=== PATIENT | female | born 1950 ===

== ENCOUNTER 2018-05-20 05:52 | Inpatient (IN) | payer MEDICARE ==
[~2018-05-20] VITALS: Ht 175.3 cm; Wt 71.7 kg
[~2018-05-20 05:52] MED LIST: CONEST.625 VAG; SUMA25 PO; Triamterene W/1 EACH PO
--- NOTE | 2018-05-20 06:45 | NUR ---
PT ADMITTED TO [facility]. AGREES WITH PLANNED SURGERY. MEDS, ALLERGIES AND HX REVIEWED. LUNG SOUNDS CLEAR. NOZIN SWAB TO BILATERAL NARES.
--- NOTE | 2018-05-20 07:16 | NUR ---
UP TO BATHROOM TO VOID.
--- NOTE | 2018-05-20 11:07 | NUR ---
PREPARING FOR DISCHARGE FROM PACU, PT C/O PAIN, MEDICATED FOR PAIN RELIEF PRIOR TO DISCHAGE. 2ND DOSE TXA ADMINISTERED.
--- NOTE | 2018-05-20 17:40 | NUR ---
SHIFT SUMMARY PT HAS DONE VERY WELL POST OP. AMBULATING EASILY, PAIN WELL MANAGED, TOLERATING DIET, VOIDING. PT DOES REPORT HAVING NUMBNESS ON TOP OF R FOOT. PWD, CAP REFILL WNL.
[2018-05-21 04:40] LABS: BASOPHILS ABSOLUTE AUTO 0.01 K/mm3 (0.00-0.23); BASOPHILS PERCENT AUTO 0 % (0-2); EOSINOPHILS ABSOLUTE AUTO 0.04 K/mm3 (0.00-0.68); EOSINOPHILS PERCENT AUTO 1 % (0-6); Hematocrit 31.9 % (33.0-51.0); Hemoglobin 10.8 g/dL (11.5-16.0); IMMATURE GRAN ABSOLUTE AUTO 0.02 K/mm3 (0.00-0.10); IMMATURE GRAN PERCENT AUTO 0 % (0-1); LYMPHOCYTES ABSOLUTE AUTO 0.82 K/mm3 (0.84-5.20); LYMPHOCYTES PERCENT AUTO 12 % (21-46); MONOCYTES ABSOLUTE AUTO 0.55 K/mm3 (0.16-1.47); MONOCYTES PERCENT AUTO 8 % (4-13); Mean Corpuscular HGB 31.9 pg (26.0-34.0); Mean Corpuscular HGB Conc 33.9 g/dL (31.5-36.5); Mean Corpuscular Volume 94 fL (80-100); Mean Platelet Volume 10.4 fL (9.1-12.4); NEUTROPHILS ABSOLUTE AUTO 5.51 K/mm3 (1.96-9.15); NEUTROPHILS PERCENT AUTO 79 % (41-73); Platelet Count 143 K/mm3 (150-400); RDW Coefficient Variation 12.4 % (11.7-14.2); RDW Standard Deviation 42.8 fL (35.1-46.3); Red Blood Cell Count 3.39 M/mm3 (3.80-5.20); White Blood Cell Count 6.95 K/mm3 (4.00-11.30)
[2018-05-21 04:55] LABS: Bun/Creatinine Ratio 32.1 (12.0-20.0); Calcium, Blood 8.3 mg/dL (8.5-10.1); Magnesium, Blood 2.2 mg/dL (1.6-2.4)
--- NOTE | 2018-05-21 06:44 | NUR ---
LYING IN SEMI FOWLERS WITH EYES OPEN. WAS TREATED FOR PAIN X3 THIS SHIFT, TOLERATED WELL. REFUSED TO WEAR SCD'S, OR USE WALKER WHILE AMBULATING. DENIES FURTHER NEEDS OR WANTS AT THIS TIME. SAFETY MEASURES IN PLACE. WILL GIVE HAND OFF TO ONCOMING SHIFT USING SBAR.
--- NOTE | 2018-05-21 07:19 | NUR ---
DR [facility] HERE, [employer] REPRESENTATIVE ROUNDED WITH
[2018-05-21] MEDS ORDERED: OXYC5 PO (08:04)
[2018-05-21] MEDS ORDERED: ASPI325EC PO (08:04)
--- NOTE | 2018-05-21 10:50 | NUR ---
DISCHARGE: PT REQUESTING TO GO HOME, REPORTS WILL WAIT SHORT TIME FOR OT TO COME SHE HAS REQUESTED OT TO ASSSIT IN QUESTIONING HOW TO PUT PANTS ON WITH HIP PRECAUTIONS. PT IV OUT WNL. PT/FAMILY REPORTS UNDERSTANDING OF DISCHARGE INSTRUCTIONS, REPORTS HAVING APPR EQUIP AT HOME. REPORTS UNDERSTANDING OF ICE MACHINE. PT BEEN GIVEN DRESSINGS AND OTHER EQUIP. PT REPORTS UNDERSTANDING OF DRESSING CHANGES. PT WAITING FOR OT TO ASSIST WITH PT AND THEN WILL BE DISCHARGED.
--- NOTE | 2018-05-21 11:25 | NUR ---
PT BEEN CLEARED BY OT, PT OUT BY W/C WITH BELONGINGS INCLUDING ICE MACHINE, DRESSINGS AND PAPERWORK. PT REPORTS HAVING FILLED SCRIPTS ALREADY.
== END 2018-05-21 11:25 | disposition home or self-care (01) | DRG 470 ==
LOC: SURS 05:52 → PRE IP 07:30 → SURS 11:10
PROVIDERS: ADMIT Orthopaedic Surgery
PROC: 0SR904A Replacement of Right Hip Joint with Ceramic on Polyethylene Synthetic Substitute, Uncemented, Open Approach (ICD-10-PCS; principal; 2018-05-20 07:30)
DX: M16.11 Unilateral primary osteoarthritis, right hip (principal); I10 Essential (primary) hypertension
CPT/HCPCS: 36415; 72170; 80048; 83735; 85025; 88300; 97110; 97116; 97162; 97165; 97530; 97535; C1713; C1776; J0171; J0690; J0735; J1100; J1170; J1885; J2250; J2405; J2795; J3010; J3370; J7120

== ENCOUNTER 2018-09-07 11:37 | Day surgery (SDC) | payer MEDICARE ==
[~2018-09-07] VITALS: Ht 175.3 cm; Wt 70.5 kg
[~2018-09-07 11:37] MED LIST changes: +ASPI325EC PO; +OXYC5 PO
--- NOTE | 2018-09-07 12:26 | NUR ---
09/07/18 1226 Jona Villegas BLOCK PLACED IN PATIENT'S RIGHT HAND. FLUSHED EXPECTED. PATIENT TOLERATED WELL
--- NOTE | 2018-09-07 14:07 | NUR ---
09/07/18 140Miki Cordon PATIENT SIGNED AMA RELEASE TO DRIVE HOME. BEIR BLOCK WAS DONE IN OPERATIVE LIMB AND NO SEDATION WAS GIVEN.
== END 2018-09-07 13:50 | disposition home or self-care (01) ==
LOC: ORSCSDS 11:37
PROVIDERS: Orthopaedic Surgery
PROC: 01N50ZZ Release Median Nerve, Open Approach (ICD-10-PCS; principal; 2018-09-07 13:35)
DX: G56.01 Carpal tunnel syndrome, right upper limb (principal); I10 Essential (primary) hypertension
CPT/HCPCS: J0690; J2001; J2250; J3010; J7120

== ENCOUNTER 2019-03-22 12:25 | Day surgery (SDC) | payer MEDICARE ==
[~2019-03-22] VITALS: Ht 175.3 cm; Wt 72.7 kg
== END 2019-03-22 14:19 | disposition home or self-care (01) ==
LOC: ORSCSDS 12:25
PROVIDERS: Internal Medicine Gastroenterology
PROC: 0DB48ZX Excision of Esophagogastric Junction, Via Natural or Artificial Opening Endoscopic, Diagnostic (ICD-10-PCS; principal; 2019-03-22 13:45)
PROC: 0DB58ZX Excision of Esophagus, Via Natural or Artificial Opening Endoscopic, Diagnostic (ICD-10-PCS; principal; 2019-03-22 13:45)
PROC: 0D757DZ Dilation of Esophagus with Intraluminal Device, Via Natural or Artificial Opening (ICD-10-PCS; principal; 2019-03-22 13:45)
DX: K22.70 Barrett's esophagus without dysplasia (principal); R13.14 Dysphagia, pharyngoesophageal phase; B37.81 Candidal esophagitis; I10 Essential (primary) hypertension; Z79.899 Other long term (current) drug therapy
CPT/HCPCS: 88305; J2704; J7120

== ENCOUNTER 2023-08-18 09:18 | Day surgery (SDC) | payer MEDICARE ==
[~2023-08-18] VITALS: Ht 175.3 cm; Wt 70.5 kg
[~2023-08-18 09:18] MED LIST changes: +Lidocaine 1%-Epineph 1:100000 20 ML MDV ONE
[2023-08-18] MEDS ORDERED: Lactated Ringer's 1,000 ML IV ONE ×2 (09:35→10:00)
[2023-08-18] MEDS ORDERED: NS 50 ML IV ONE (09:37)
[2023-08-18] MEDS ORDERED: CeFAZolin Sodium 2,000 MG VIAL ONE (09:37)
[2023-08-18] MEDS ORDERED: CATAPRES0.1 MG PO (09:47)
[2023-08-18] MEDS ORDERED: IRBE150 PO (09:48)
--- NOTE | 2023-08-18 11:12 | NUR ---
08/18/23 1112 Brandy Castillo TIMEOUT FOR INJECTION IN PRE-OP AT [address] [facility]
[2023-08-18] MEDS ORDERED: Lidocaine HCl/Pf 1% 5 ML VIAL ONE (11:31)
[2023-08-18 11:49] VITALS: BP 198/93
== END 2023-08-18 12:24 | disposition home or self-care (01) ==
LOC: ORSCSDS 09:18
PROVIDERS: Orthopaedic Surgery
PROC: 01N50ZZ Release Median Nerve, Open Approach (ICD-10-PCS; principal; 2023-08-18 10:45)
DX: G56.02 Carpal tunnel syndrome, left upper limb (principal); I10 Essential (primary) hypertension; E78.5 Hyperlipidemia, unspecified; Z79.899 Other long term (current) drug therapy
CPT/HCPCS: J0690; J2001; J7120

== ENCOUNTER → 2023-12-18 | Outpatient (CLI) | payer MEDICARE ==
[~2023-12-18] MED LIST changes: +CATAPRES0.1 MG PO; +IRBE150 PO; -Lidocaine 1%-Epineph 1:100000 20 ML MDV ONE; +MAXIDEX
== END ==
LOC: LAB SHORT 14:36 → LAB 14:36
DX: L72.0 Epidermal cyst (principal)
CPT/HCPCS: 88304

== ENCOUNTER 2023-12-24 11:51 | Day surgery (SDC) | payer MEDICARE ==
[~2023-12-24] VITALS: Ht 175.3 cm; Wt 156.2 kg
[~2023-12-24 11:51] MED LIST changes: +Balanced Salt Epinephrine Irrigation Solution 500 mL IR SCH; +Lidocaine HCl/Pf 1% 5 ML VIAL XX SCH; +Moxifloxacin HCL 0.5 MG/0.1 ML 0.4MLSYR LEFTEYE SCH; +NS 500 ML IV ONE; +PHENYLEPHRINE\\TROPICAMIDE\\TETRACAINE OPHTHALMIC DILATING SOLN LEFTEYE PRN; +Povidone-Iodine 450 DROP/30 ML Solution LEFTEYE SCH; +Povidone-Iodine 450 DROP/30 ML Solution ONE; +Tetracaine HCl/Pf 0.5% Opth Soln 4 ml ONE
[2023-12-24] MEDS ORDERED: NS 500 ML IV ONE (12:24)
[2023-12-24] MEDS ORDERED: Midazolam HCl 1MG / ML 2ML Vial ONE (12:43)
[2023-12-24] MEDS ORDERED: Labetalol HCL 5 MG/ML 4ML Injection (Single Dose) ONE (12:46)
[2023-12-24] MEDS ORDERED: Tetracaine HCl 0.5% Opth Soln 15 ml LEFTEYE ONE (12:47)
[2023-12-24 13:21] VITALS: BP 152/83
== END 2023-12-24 13:23 | disposition home or self-care (01) ==
LOC: ORSCSDS 11:51
PROVIDERS: Student in an Organized Health Care Education/Training Program
PROC: 08RK3JZ Replacement of Left Lens with Synthetic Substitute, Percutaneous Approach (ICD-10-PCS; principal; 2023-12-24 13:00)
DX: H25.813 Combined forms of age-related cataract, bilateral (principal); I10 Essential (primary) hypertension; Z79.899 Other long term (current) drug therapy
CPT/HCPCS: J2250; J7040; V2632

== ENCOUNTER 2023-12-30 06:53 | Day surgery (SDC) | payer MEDICARE ==
[~2023-12-30] VITALS: Ht 170.2 cm; Wt 70.6 kg
[~2023-12-30 06:53] MED LIST changes: +Lidocaine HCl/Pf 1% 5 ML VIAL ONE; -Moxifloxacin HCL 0.5 MG/0.1 ML 0.4MLSYR LEFTEYE SCH; +Moxifloxacin HCL 0.5 MG/0.1 ML 0.4MLSYR RIGHTEYE SCH; -PHENYLEPHRINE\\TROPICAMIDE\\TETRACAINE OPHTHALMIC DILATING SOLN LEFTEYE PRN; +PHENYLEPHRINE\\TROPICAMIDE\\TETRACAINE OPHTHALMIC DILATING SOLN RIGHTEYE PRN; -Povidone-Iodine 450 DROP/30 ML Solution LEFTEYE SCH; +Povidone-Iodine 450 DROP/30 ML Solution RIGHTEYE SCH
[2023-12-30] MEDS ORDERED: NS 500 ML IV ONE (07:30)
[2023-12-30] MEDS ORDERED: Midazolam HCl 1MG / ML 2ML Vial ONE (08:19)
[2023-12-30] MEDS ORDERED: HydrALAZINE HCl 20 MG / ML 1ML Vial ONE (08:25)
[2023-12-30 08:45] VITALS: BP 156/90
--- NOTE | 2023-12-30 09:02 | NUR ---
12/30/23 0902 Billie Coyne PT. WALKED OUT, HAD NO N/V, HER RIGHT EYE WAS BOTHERING HER, SHE FELT SHE DID NOT GET ENOUGH NUMBING MEDS IN HER EYE THIS TIME.
== END 2023-12-30 08:57 | disposition home or self-care (01) ==
LOC: ORSCSDS 06:53
PROVIDERS: Student in an Organized Health Care Education/Training Program
PROC: 08RJ3JZ Replacement of Right Lens with Synthetic Substitute, Percutaneous Approach (ICD-10-PCS; principal; 2023-12-30 08:30)
DX: H25.811 Combined forms of age-related cataract, right eye (principal); I10 Essential (primary) hypertension; Z79.899 Other long term (current) drug therapy; Z96.1 Presence of intraocular lens
CPT/HCPCS: J0360; J2003; J2250; J7040; V2632